=== PATIENT | male | born 1940 | race Caucasian/White ===

== ENCOUNTER 2021-10-17 18:26 | Inpatient (IN) ==
[2021-10-17 19:58] LABS: Basophils # 0.1 K/mcL (0.0-0.2); Basophils % 0.5 %; Eosinophils # 0.1 K/mcL (0.0-0.6); Eosinophils % 1.3 %; Hematocrit 42.5 % (37.5-50.1); Hemoglobin 14.1 g/dL (12.9-16.9); Immature Granulocytes % 0.8 % (0-4); Lymphocytes # 1.2 K/mcL (0.6-4.6); Lymphocytes % 11.6 %; Mean Corpuscular HGB Conc 33.2 g/dL (31.6-35.5); Mean Corpuscular Hemoglobin 28.8 pg (28.0-33.3); Mean Corpuscular Volume 86.9 fL (83.0-100.0); Mean Platelet Volume 10.4 fL (9.4-12.4); Monocytes # 0.9 K/mcL (0.0-1.3); Monocytes % 8.7 %; Platelet Count 273 K/mcL (140-400); Red Blood Count 4.89 M/mcL (4.19-5.50); Red Cell Distribution Width 13.5 % (11.5-14.5); Segmented Neutrophils % 77.1 %; White Blood Count 10.4 K/mcL (4.3-11.1)
[2021-10-17 20:03] LABS: Bilirubin,Urine Negative (Negative); Blood,Urine Trace-intact (Negative); Clarity,Urine Clear (Clear); Color,Urine Yellow (Yellow); Glucose,Urine (UA) Normal (Normal); Ketones,Urine Negative (Negative); Leukocyte Esterase,Urine Small (Negative); Nitrite,Urine Negative (Negative); Protein,Urine Negative (Neg-Trace); Specific Gravity,Urine 1.025 (1.010-1.025); Urobilinogen,Urine Normal (Normal)
[2021-10-17 20:12] LABS: Bacteria,Urine Many per hpf (None-Few); RBC,Urine 0-3 per hpf (0-3); Squamous Epithelial Cell,Urine Few per hpf (None-Few); WBC,Urine 15-30 per hpf (0-3)
[2021-10-17 20:16] LABS: Alanine Aminotransferase 29 Units/L (7-52); Albumin 3.9 g/dL (3.5-5.7); Albumin/Globulin Ratio 1.2 (1.1-2.2); Alkaline Phosphatase 56 Units/L (34-104); Aspartate Amino Transferase 32 Units/L (13-39); BUN/Creatinine Ratio 25 (6-26); Bilirubin,Total 0.7 mg/dL (0.3-1.0); Blood Urea Nitrogen 24 mg/dL (8-23); Calcium 8.7 mg/dL (8.6-10.3); Carbon Dioxide 27 mEq/L (23-29); Chloride 104 mEq/L (98-107); Ethanol < 10 mg/dL (Less than 10); Globulin 3.2 g/dL (2.4-3.5); Glucose 95 mg/dL (70-105); Magnesium 1.9 mg/dL (1.6-2.6); Osmolality,Calculated 292 (280-300); Potassium 3.9 mEq/L (3.5-5.1); Sodium 139 mEq/L (136-145); Total Protein 7.1 g/dL (6.4-8.9); eGFR For African Americans > 60 (> 60); eGFR For Non-African Americans > 60 (> 60)
[2021-10-17 20:21] LABS: Amphetamine Screen,Urine Negative ng/mL (Cutoff=1000); Barbiturate Screen,Urine Negative ng/mL (Cutoff=200); Benzodiazepines Screen,Urine Negative ng/mL (Cutoff=200); Cannabinoid Screen,Urine Negative ng/mL (Cutoff = 50); Cocaine Screen,Urine Negative ng/mL (Cutoff= 300); Opiate Screen,Urine Negative ng/mL (Cutoff=300); Phencyclidine Screen,Urine Negative ng/mL (Cutoff=25)
[2021-10-17 21:06] LABS: Thyroid Stimulating Hormone 3.677 mcIU/mL (0.340-5.600)
[2021-10-17 22:43] LABS: INR 1.1; Prothrombin Time 12.6 Seconds (9.4-12.1)
[2021-10-17 22:45] LABS: Activated Partial Thrombo Time 38.3 Seconds (26.0-36.0)
[2021-10-17] MEDS ORDERED: Sennosides/Docusate Sodium TABLET PO PRN (23:15)
[2021-10-17] MEDS ORDERED: Naloxone 0.4 MG/ML INJ IVP PRN (23:15)
[2021-10-17] MEDS ORDERED: Mag Hydrox/Al Hydrox/Simeth 30 ML UDC PO PRN (23:15)
[2021-10-17] MEDS ORDERED: Ondansetron ODT 4 MG TAB.RAPDIS SL PRN (23:15)
[2021-10-17] MEDS ORDERED: MOM Conc 10 ML UD.LIQ PO PRN (23:15)
[2021-10-18] MEDS: *HR* Enoxaparin 40 MG/0.4 ML SYRINGE SQ SCH (06:32)
[2021-10-18] MEDS: Aspirin 325 MG TABLET PO SCH (09:37)
[2021-10-18] MEDS: Metoprolol XL (24 HR) Succ 25 MG TAB.ER.24H PO SCH (09:37)
[2021-10-18] MEDS: lisinopriL 20 MG TABLET PO SCH (09:37)
[2021-10-18] MEDS: Finasteride 5 MG TABLET PO SCH (09:37)
[2021-10-18] MEDS: Multivit/Ca/Min/Fe/FA 1 TAB TABLET PO SCH (09:37)
[2021-10-18] MEDS: Cholecalciferol (D-3) 1,000 UNIT (25MCG) TABLET PO SCH (09:37)
[2021-10-18] MEDS ORDERED: haloperidoL 1 MG TABLET PO PRN (14:52)
[2021-10-18] MEDS: Melatonin 3 MG TABLET PO PRN (21:53)
[2021-10-19] MEDS: Cholecalciferol (D-3) 1,000 UNIT (25MCG) TABLET PO SCH (10:26)
[2021-10-19] MEDS: Finasteride 5 MG TABLET PO SCH (10:26)
[2021-10-19] MEDS: Multivit/Ca/Min/Fe/FA 1 TAB TABLET PO SCH (10:26)
[2021-10-19] MEDS: Metoprolol XL (24 HR) Succ 25 MG TAB.ER.24H PO SCH (10:26)
[2021-10-19] MEDS: *HR* Enoxaparin 40 MG/0.4 ML SYRINGE SQ SCH (10:27)
[2021-10-19] MEDS: lisinopriL 20 MG TABLET PO SCH (10:27)
[2021-10-19] MEDS: Aspirin 325 MG TABLET PO SCH (10:27)
[2021-10-19] MEDS ORDERED: haloperidoL 1 MG TABLET PO PRN ×2 (15:00→22:11)
[2021-10-19] MEDS ORDERED: Haloperidol Lactate 5 MG/ML VIAL IM ONE (15:12)
[2021-10-19] MEDS: Melatonin 3 MG TABLET PO PRN (19:05)
[2021-10-19] MEDS ORDERED: Haloperidol Lactate 5 MG/ML VIAL IVP ONE (21:07)
[2021-10-20] MEDS: *HR* Enoxaparin 40 MG/0.4 ML SYRINGE SQ SCH (05:04)
[2021-10-20] MEDS: Multivit/Ca/Min/Fe/FA 1 TAB TABLET PO SCH (08:51)
[2021-10-20] MEDS: Cholecalciferol (D-3) 1,000 UNIT (25MCG) TABLET PO SCH (08:51)
[2021-10-20] MEDS: Finasteride 5 MG TABLET PO SCH (08:52)
[2021-10-20] MEDS: Metoprolol XL (24 HR) Succ 25 MG TAB.ER.24H PO SCH (08:52)
[2021-10-20] MEDS: Aspirin 325 MG TABLET PO SCH (08:52)
[2021-10-20] MEDS: lisinopriL 20 MG TABLET PO SCH (08:52)
[2021-10-20 13:51] LABS: Alanine Aminotransferase 24 Units/L (7-52); Albumin 3.5 g/dL (3.5-5.7); Albumin/Globulin Ratio 1.2 (1.1-2.2); Alkaline Phosphatase 48 Units/L (34-104); Aspartate Amino Transferase 27 Units/L (13-39); BUN/Creatinine Ratio 20 (6-26); Bilirubin,Total 0.7 mg/dL (0.3-1.0); Blood Urea Nitrogen 19 mg/dL (8-23); Calcium 8.3 mg/dL (8.6-10.3); Carbon Dioxide 27 mEq/L (23-29); Chloride 104 mEq/L (98-107); Glucose 129 mg/dL (70-105); Osmolality,Calculated 292 (280-300); Potassium 3.9 mEq/L (3.5-5.1); Sodium 139 mEq/L (136-145); Total Protein 6.5 g/dL (6.4-8.9); eGFR For African Americans > 60 (> 60); eGFR For Non-African Americans > 60 (> 60)
[2021-10-20 13:52] LABS: Basophils % 0.4 %; Eosinophils # 0.2 K/mcL (0.0-0.6); Eosinophils % 2.5 %; Hematocrit 41.2 % (37.5-50.1); Hemoglobin 13.6 g/dL (12.9-16.9); Lymphocytes % 11.8 %; Mean Corpuscular Hemoglobin 28.5 pg (28.0-33.3); Mean Corpuscular Volume 86.2 fL (83.0-100.0); Mean Platelet Volume 10.5 fL (9.4-12.4); Monocytes # 0.7 K/mcL (0.0-1.3); Neutrophils # 6.2 K/mcL (1.6-8.9); Platelet Count 246 K/mcL (140-400); Red Blood Count 4.78 M/mcL (4.19-5.50); Red Cell Distribution Width 13.4 % (11.5-14.5); Segmented Neutrophils % 76.3 %; White Blood Count 8.1 K/mcL (4.3-11.1)
[2021-10-20] MEDS: haloperidoL 1 MG TABLET PO PRN ×2 (14:03→20:03)
[2021-10-20] MEDS ORDERED: haloperidoL 1 MG TABLET PO STA (15:00)
[2021-10-20] MEDS: Melatonin 3 MG TABLET PO PRN (20:02)
[2021-10-20] MEDS: QUEtiapine Fumarate 25 MG TABLET PO SCH (20:02)
[2021-10-21] MEDS: *HR* Enoxaparin 40 MG/0.4 ML SYRINGE SQ SCH (08:51)
[2021-10-21] MEDS: Cholecalciferol (D-3) 1,000 UNIT (25MCG) TABLET PO SCH (08:51)
[2021-10-21] MEDS: haloperidoL 1 MG TABLET PO PRN ×2 (08:51→15:08)
[2021-10-21] MEDS: Aspirin 325 MG TABLET PO SCH (08:51)
[2021-10-21] MEDS: Multivit/Ca/Min/Fe/FA 1 TAB TABLET PO SCH (08:51)
[2021-10-21] MEDS: Finasteride 5 MG TABLET PO SCH (08:52)
[2021-10-21] MEDS: lisinopriL 20 MG TABLET PO SCH (08:52)
[2021-10-21] MEDS: Metoprolol XL (24 HR) Succ 25 MG TAB.ER.24H PO SCH (08:52)
[2021-10-21] MEDS ORDERED: Haloperidol Lactate 5 MG/ML VIAL IVP ONE (15:18)
[2021-10-21] MEDS ORDERED: Haloperidol Lactate 5 MG/ML VIAL IVP PRN ×2 (15:19→19:38)
[2021-10-21] MEDS ORDERED: *HR* LORazepam 2 MG/ML VIAL IVP PRN ×3 (15:20→19:32)
[2021-10-21] MEDS: Haloperidol Lactate 5 MG/ML VIAL IVP SCH ×3 (17:43→23:33)
[2021-10-21] MEDS: Valproic Acid Oral Soln 250 MG/5 ML UDC PO SCH (17:49)
[2021-10-21] MEDS ORDERED: *HR* LORazepam Oral Conc 2 MG/ML SL PRN (19:28)
[2021-10-21] MEDS: Haloperidol Oral Conc 10 MG/5 ML UDC PO SCH (23:24)
[2021-10-21] MEDS: QUEtiapine Fumarate 25 MG TABLET PO SCH (23:34)
[2021-10-22] MEDS ORDERED: haloperidoL 1 MG TABLET PO SCH
[2021-10-22] MEDS: *HR* LORazepam Oral Conc 2 MG/ML SL PRN ×2 (01:09→15:16)
[2021-10-22] MEDS: Nystatin POWDER 30 GM BOTTLE TP SCH ×2 (01:19→12:09)
[2021-10-22] MEDS: Valproic Acid Oral Soln 250 MG/5 ML UDC PO SCH ×2 (01:49→12:04)
[2021-10-22 04:59] LABS: Mean Corpuscular HGB Conc 33.3 g/dL (31.6-35.5); Mean Corpuscular Hemoglobin 28.4 pg (28.0-33.3); Mean Corpuscular Volume 85.5 fL (83.0-100.0); Mean Platelet Volume 10.4 fL (9.4-12.4); Platelet Count 230 K/mcL (140-400); Red Blood Count 5.38 M/mcL (4.19-5.50); Red Cell Distribution Width 13.2 % (11.5-14.5); White Blood Count 10.3 K/mcL (4.3-11.1)
[2021-10-22 05:06] LABS: Hemoglobin 15.3 g/dL (12.9-16.9)
[2021-10-22 05:16] LABS: BUN/Creatinine Ratio 20 (6-26); Blood Urea Nitrogen 18 mg/dL (8-23); Calcium 9.7 mg/dL (8.6-10.3); Carbon Dioxide 29 mEq/L (23-29); Chloride 100 mEq/L (98-107); Glucose 107 mg/dL (70-105); Osmolality,Calculated 286 (280-300); Potassium 4.4 mEq/L (3.5-5.1); Sodium 137 mEq/L (136-145); eGFR For African Americans > 60 (> 60); eGFR For Non-African Americans > 60 (> 60)
[2021-10-22] MEDS: Haloperidol Oral Conc 10 MG/5 ML UDC PO SCH ×2 (05:53→12:04)
[2021-10-22] MEDS: *HR* Enoxaparin 40 MG/0.4 ML SYRINGE SQ SCH (05:55)
[2021-10-22] MEDS: Haloperidol Lactate 5 MG/ML VIAL IVP SCH ×2 (06:00→12:10)
[2021-10-22] MEDS: Metoprolol XL (24 HR) Succ 25 MG TAB.ER.24H PO SCH (12:06)
[2021-10-22] MEDS: lisinopriL 20 MG TABLET PO SCH (12:07)
[2021-10-22] MEDS: Finasteride 5 MG TABLET PO SCH (12:08)
[2021-10-22] MEDS: Cholecalciferol (D-3) 1,000 UNIT (25MCG) TABLET PO SCH (12:09)
[2021-10-22] MEDS: Multivit/Ca/Min/Fe/FA 1 TAB TABLET PO SCH (12:09)
[2021-10-22] MEDS: Aspirin 325 MG TABLET PO SCH (12:09)
[2021-10-22 15:40] VITALS: BP 163/94; PULSE 92; RESP 20; TEMP 97.6; O2SAT 98
== END 2021-10-22 16:15 ==
LOC: EMEROOGRE 18:26 → INPGRE 18:26
PROVIDERS: ADMIT Internal Medicine; ATTEND Family Medicine